=== PATIENT | male | born 1975 | race Caucasian/White ===

== ENCOUNTER → 2019-05-15 | Outpatient (REF) ==
--- NOTE | 2019-05-15 21:39 | REP ---
Clinical: Pain and disability. Technique: AP, lateral, coned-down views of the lumbosacral spine. Findings: Alignment and lordosis maintained. Vertebral bodies intact. Subtle age-related changes are appreciated including minimal endplate sclerosis and very early spurring. Disc spaces appear maintained. Chronic spondylolysis at L5 without anterolisthesis suggested. Impression: Mild age-related degenerative changes. Cannot exclude bilateral L5 spondylolysis Electronically Signed by Cayden Flores MD 05/15/2019 09:30 P
--- NOTE | 2019-05-15 21:50 | REP ---
Pain and disability. Technique: AP lateral, swimmers and open mouth views of the cervical spine. Findings: Alignment and lordosis maintained. Vertebral bodies intact. C1-C2 articulation and odontoid process normal. No significant degenerative changes. Impression: Age-appropriate cervical spine radiographs. Electronically Signed by Cayden Flores MD 05/15/2019 09:41 P
== END ==
LOC: M SMT 13:02
PROVIDERS: ATTEND Internal Medicine
DX: Z00.00 Encounter for general adult medical examination without abnormal findings (principal)

== ENCOUNTER → 2021-04-08 | Outpatient (CLI) | payer OTHER ==
[~2021-04-08] MED LIST: B-12100T2 PO; BUPR150T12 PO; BUSP30TA PO; CLAR10CA3 PO; CYCL-707 PO; FLUO20CA22 PO; OMEP40CA97 PO; PERC5TAB12 PO; PRAZ2CAP PO; ROSU40TA4 PO; VITA500045 PO; [UNRECOGNIZED DRUG - CODE] EX
== END ==
LOC: M LABSMTC 11:57
PROVIDERS: ATTEND Anesthesiology
DX: Z01.818 Encounter for other preprocedural examination (principal); Z11.52 Encounter for screening for COVID-19

== ENCOUNTER 2021-04-13 11:52 | Day surgery (SDC) | payer OTHER ==
[~2021-04-13] VITALS: Ht 185.4 cm; Wt 150.6 kg
[~2021-04-13 11:52] MED LIST changes: +NS 1,000 ML IV ONE
[2021-04-13] MEDS ORDERED: fentaNYL 100 MCG/2 ML INJECTION (J3010) As Ordered ONE (14:26)
[2021-04-13] MEDS ORDERED: LIDOCAINE 2% 100MG/5ML SDV (FOR ANES.) As Ordered ONE (14:26)
[2021-04-13] MEDS ORDERED: propofoL 200 MG/20 ML VIAL As Ordered ONE ×2 (14:26→14:46)
--- NOTE | 2021-04-13 14:41 | ROOR ---
Patient Name: Georgi Arellano Procedure Date: 04/13/2021 2:26 PM Date of : 1975 Age: 45 Room: [facility] Gender: Male Note Status: Finalized Procedure: Upper Endoscopy + Biopsies Indications: Heartburn, Exclusion of Santizo's esophagus Providers: Vasiliy Garcia MD Referring MD: Valentín Sarmiento MD Requesting Provider: Medicines: Monitored Anesthesia Care Complications: No immediate complications. Procedure: Pre-Anesthesia Assessment: - The heart rate, respiratory rate, oxygen saturations, blood pressure, adequacy of pulmonary ventilation, and response to care were monitored throughout the procedure. The Endoscope was introduced through the mouth, and advanced to the second part of duodenum. The upper GI endoscopy was accomplished without difficulty. The patient tolerated the procedure well. Findings: The Z-line was regular and was found 40 cm from the incisors. Multiple biopsies were obtained with cold forceps for evaluation to rule out Santizo's Esophagus randomly at the gastroesophageal junction. No other significant abnormalities were identified in a careful examination of the stomach. The exam of the duodenum was otherwise normal. Impression: - Z-line regular, 40 cm from the incisors. - Multiple biopsies were obtained at the gastroesophageal junction. - The examination was otherwise normal. Recommendation: - Patient has a contact number available for emergencies. The signs and symptoms of potential delayed complications were discussed with the patient. Return to normal activities tomorrow. Written discharge instructions were provided to the patient. - High fiber diet. - Discharge patient to home. - Follow an antireflux regimen. - Continue present medications. - Await pathology results. - Telephone GI clinic for pathology results in 1 week. - Return to referring physician. - The findings and recommendations were discussed with the patient's family. Procedure Code(s): --- Professional --- 02870, Esophagogastroduodenoscopy, flexible, transoral; with biopsy, single or multiple Diagnosis Code(s): --- Professional --- R12, Heartburn CPT copyright 2019 [employer]. All rights reserved. The codes documented in this report are preliminary and upon foil spooler review may be revised to meet current compliance requirements. Vasiliy Garcia MD Vasiliy Garcia MD 04/13/2021 2:41:18 PM Electronically signed by Vasiliy Garcia MD Number of Addenda: 0 Note Initiated On: 04/13/2021 2:26 PM Estimated Blood Loss: Estimated blood loss: none.
--- NOTE | 2021-04-13 15:11 | ROOR ---
Patient Name: Georgi Arellano Procedure Date: 04/13/2021 2:27 PM Date of : 1975 Age: 45 Room: [facility] Gender: Male Note Status: Finalized Procedure: Total Colonoscopy to Cecum + Cold Snare Polypectomy + Hemoclips Indications: Rectal bleeding, Change in bowel habits Providers: Vasiliy Garcia MD Referring MD: Valentín Sarmiento MD Requesting Provider: Medicines: Monitored Anesthesia Care Complications: No immediate complications. Procedure: Pre-Anesthesia Assessment: - The heart rate, respiratory rate, oxygen saturations, blood pressure, adequacy of pulmonary ventilation, and response to care were monitored throughout the procedure. The Colonoscope was introduced through the anus and advanced to the cecum, identified by appendiceal orifice and ileocecal valve. The colonoscopy was performed without difficulty. The patient tolerated the procedure well. The quality of the bowel preparation was excellent. Findings: The perianal and digital rectal examinations were normal. Non-bleeding internal hemorrhoids were found during retroflexion. The hemorrhoids were small and Grade I (internal hemorrhoids that do not prolapse). Scattered small-mouthed diverticula were found in the recto-sigmoid colon, sigmoid colon and descending colon. A medium polyp was found in the transverse colon. The polyp was carpet-like. The polyp was removed with a jumbo cold forceps. Resection and retrieval were complete. A large polyp was found in the ascending colon. The polyp was sessile. The polyp was removed with a cold snare. Resection and retrieval were complete. To prevent bleeding after the polypectomy, two hemostatic clips were successfully placed. There was no bleeding at the end of the procedure. The exam was otherwise without abnormality on direct and retroflexion views. Impression: - Non-bleeding internal hemorrhoids. - Diverticulosis in the recto-sigmoid colon, in the sigmoid colon and in the descending colon. - One medium polyp in the transverse colon, removed with a jumbo cold forceps. Resected and retrieved. - One large polyp in the ascending colon, removed with a cold snare. Resected and retrieved. Clips were placed. - The examination was otherwise normal on direct and retroflexion views. - The exam was otherwise normal to the cecum. Recommendation: - Patient has a contact number available for emergencies. The signs and symptoms of potential delayed complications were discussed with the patient. Return to normal activities tomorrow. Written discharge instructions were provided to the patient. - High fiber diet. - Discharge patient to home. - Continue present medications. - Await pathology results. - Repeat colonoscopy in 3 years for surveillance based on pathology results. - Return to referring physician. - Telephone GI clinic for pathology results in 1 week. - The findings and recommendations were discussed with the patient's family. Procedure Code(s): --- Professional --- 55325, Colonoscopy, flexible; with removal of tumor(s), polyp(s), or other lesion(s) by snare technique 68044, 59, Colonoscopy, flexible; with biopsy, single or multiple Diagnosis Code(s): --- Professional --- K64.0, First degree hemorrhoids K63.5, Polyp of colon K62.5, Hemorrhage of anus and rectum R19.4, Change in bowel habit K57.30, Diverticulosis of large intestine without perforation or abscess without bleeding CPT copyright 2019 [employer]. All rights reserved. The codes documented in this report are preliminary and upon field account manager review may be revised to meet current compliance requirements. Vasiliy Garcia MD Vasiliy Garcia MD 04/13/2021 3:11:35 PM Electronically signed by Vasiliy Garcia MD Number of Addenda: 0 Note Initiated On: 04/13/2021 2:27 PM Estimated Blood Loss: Estimated blood loss: none.
[2021-04-13 15:35] VITALS: BP 158/92
== END 2021-04-13 15:37 | disposition home or self-care (01) ==
LOC: M OPP 11:52
PROVIDERS: ATTEND Internal Medicine Gastroenterology
DX: K57.30 Diverticulosis of large intestine without perforation or abscess without bleeding (principal); K63.5 Polyp of colon; K64.0 First degree hemorrhoids; R19.4 Change in bowel habit; K62.5 Hemorrhage of anus and rectum; K21.9 Gastro-esophageal reflux disease without esophagitis; R12 Heartburn; Z79.891 Long term (current) use of opiate analgesic; Z79.899 Other long term (current) drug therapy; Z88.0 Allergy status to penicillin; Z88.5 Allergy status to narcotic agent; Z91.030 Bee allergy status
CPT/HCPCS: 43239; 45380; 45385; 88305; J3010

== ENCOUNTER → 2021-04-26 | Outpatient (CLI) | payer OTHER ==
[~2021-04-26] MED LIST changes: -NS 1,000 ML IV ONE; +OMEP40CA4 PO; -OMEP40CA97 PO
--- NOTE | 2021-04-26 10:33 | REPVR ---
PROCEDURE INFORMATION: Exam: MR Lumbar Spine Without Contrast Exam date and time: 04/26/2021 9:27 AM Age: 45 years old Clinical indication: Pain; Lumbago with sciatica; Left; Additional info: Lbp with lt sided sciatica, loss of bowels TECHNIQUE: Imaging protocol: Multiplanar magnetic resonance images of the lumbar spine without intravenous contrast. COMPARISON: SPINE LUMBOSACRAL PARTIAL 05/15/2019 1:18 PM FINDINGS: Vertebrae: The lumbar vertebral bodies are normal in height,signal intensity and alignment.No acute fracture or dislocation is seen. Spinal epidural space: There is marked prominence of the epidural fat extending from L5-S3 levels consistent with epidural lipomatosis causing marked secondary spinal canal stenosis. Spinal cord: The conus medullaris is normal. L1-L2: There is no significant degenerative disc herniation.The spinal canal and neural foramina are patent and without significant stenosis. L2-L3: There is no significant degenerative disc herniation.The spinal canal and neural foramina are patent and without significant stenosis. L3-L4: There is no significant degenerative disc herniation.The spinal canal and neural foramina are patent and without significant stenosis. L4-L5: There is no significant degenerative disc herniation.The spinal canal and neural foramina are patent and without significant stenosis. Moderate facet arthropathy. L5-S1: Mild desiccation changes.There is a mild diffuse posterior bulge causing mild effacement of the thecal sac.The facet joints demonstrate moderate degenerative narrowing and sclerosis. Severe epidural lipomatosis causing severe secondary spinal canal stenosis and marked compression and central crowding of the thecal sac and cauda equina nerve roots at this level. Soft tissues: The prevertebral soft tissues appear normal. IMPRESSION: 1. MRI of the lumbar spine reveals multilevel degenerative spondylitic changes and degenerative disc disease as described above. 2. There is marked prominence of the epidural fat extending from L5-S3 levels consistent with epidural lipomatosis causing marked secondary spinal canal stenosis. Electronically signed by: Josse Dc On 04/26/2021 10:33:18 AM
== END ==
LOC: M RAD 08:12
PROVIDERS: ATTEND Pain Medicine Interventional Pain Medicine
DX: M51.26 Other intervertebral disc displacement, lumbar region (principal)

== ENCOUNTER → 2021-06-01 | Outpatient (CLI) | payer OTHER ==
--- NOTE | 2021-06-02 17:32 | REPVR ---
PROCEDURE INFORMATION: Exam: MR Cervical Spine Without Contrast Exam date and time: 06/01/2021 9:00 AM Age: 45 years old Clinical indication: Radiculopathy; Cervical region; Additional info: Radiculopthy cervical region TECHNIQUE: Imaging protocol: Multiplanar magnetic resonance images of the cervical spine without contrast. COMPARISON: CR SPINE CERVICAL AP/LAT 05/15/2019 1:20 PM FINDINGS: Vertebrae: Unremarkable. Spinal cord: Normal signal. No cord compression. C2-C3: No significant disc disease. No significant spinal stenosis. C3-C4: No significant disc disease. No significant spinal stenosis. C4-C5: No significant disc disease. No significant spinal stenosis. C5-C6: No significant disc disease. No significant spinal stenosis. C6-C7: No significant disc disease. No significant spinal stenosis. C7-T1: No significant disc disease. No significant spinal stenosis. Soft tissues: Unremarkable. Vertebral arteries: Expected flow voids in the vertebral arteries. IMPRESSION: Unremarkable spine. Electronically signed by: Nuno Cedillo On 06/02/2021 17:31:32 PM
== END ==
LOC: M RAD 07:31
PROVIDERS: ATTEND Pain Medicine Interventional Pain Medicine
DX: M54.12 Radiculopathy, cervical region (principal)

== ENCOUNTER 2022-01-24 23:24 | Day surgery (SDC) | payer OTHER, MEDICARE ==
[~2022-01-24] VITALS: Ht 182.9 cm; Wt 155.8 kg
[2022-01-24] MEDS ORDERED: ONDANSETRON 4MG/2ML VIAL IV ONE (23:45)
[2022-01-24] MEDS ORDERED: MORPHINE 4 MG/ML 1ML VIAL/SYRINGE (J2270) IV ONE (23:45)
[2022-01-25 00:23] LABS: BASO % 0.3 % (0.0-1.0); EOS # 0.1 10^3/uL (0.0-0.5); EOS % 1.1 % (0.0-3.0); HEMATOCRIT 39.4 % (42.0-52.0); HEMOGLOBIN 13.2 g/dl (13.5-17.5); LYMPH # 2.3 10^3/uL (1.5-5.0); LYMPH % 18.6 % (24.0-44.0); MEAN CORPUSCULAR HEMOGLOBIN 29.3 pg (27.0-33.0); MEAN CORPUSCULAR HGB CONC 33.5 g/dl (32.0-36.5); MEAN CORPUSCULAR VOLUME 87.4 fl (80.0-96.0); MONO # 0.9 10^3/uL (0.0-0.8); MONO % 7.1 % (2.0-8.0); NEUTROPHILS # 8.8 10^3/uL (1.5-8.5); NEUTROPHILS % 72.6 % (36.0-66.0); PLATELET COUNT, AUTOMATED 284 10^3/uL (150-450); RED BLOOD COUNT 4.51 10^6/uL (4.30-6.10); WHITE BLOOD COUNT 12.1 10^3/uL (4.0-10.0)
[2022-01-25 00:32] LABS: INR 0.96; PROTHROMBIN TIME 13.2 SECONDS (12.7-14.5)
[2022-01-25 00:48] LABS: ALBUMIN 3.6 GM/DL (3.2-5.2); BILIRUBIN,DIRECT 0.2 MG/DL (0.0-0.2); BILIRUBIN,TOTAL 0.9 MG/DL (0.2-1.0); CK-MB VALUE MASS < 1.0 NG/ML (<3.6); CPK CREATINE PHOSPHOKINASE 105 U/L (39-308); MB/CK RELATIVE INDEX 0.95 (< OR =4); TOTAL PROTEIN 6.9 GM/DL (6.4-8.2)
[2022-01-25] MEDS ORDERED: ISOVUE-370 76% 100ML VIAL As Ordered ONE (00:50)
[2022-01-25] MEDS ORDERED: MORPHINE 4 MG/ML 1ML VIAL/SYRINGE (J2270) IV ONE (02:15)
[2022-01-25] MEDS ORDERED: LevoFLOXacin IV 750 MG in IV 1 EA IV ONE (02:15)
[2022-01-25] MEDS ORDERED: NS 1,000 ML IV ONE (02:15)
[2022-01-25] MEDS ORDERED: MULTTAB86 PO (02:41)
[2022-01-25] MEDS ORDERED: BUSP15TA47 PO (02:41)
[2022-01-25] MEDS ORDERED: METO1TAB7 PO (02:41)
[2022-01-25] MEDS ORDERED: IMIT6KIT SC (02:41)
[2022-01-25] MEDS ORDERED: META28.32 PO (02:41)
[2022-01-25] MEDS ORDERED: OMEP1CAP73 PO (02:41)
[2022-01-25] MEDS ORDERED: HOME MED LIST COMPLETE! XX SCH (02:45)
[2022-01-25 03:13] LABS: RSV AMPLIFICATION NEGATIVE (NEGATIVE)
[2022-01-25] MEDS ORDERED: LIDOCAINE W/EPINEPHRINE 1% 20ML VIAL As Ordered ONE (04:05)
[2022-01-25] MEDS ORDERED: BUPIVACAINE HCL 0.25% 30ML VIAL As Ordered ONE (04:38)
[2022-01-25] MEDS ORDERED: propofoL 200 MG/20 ML VIAL As Ordered ONE (04:50)
[2022-01-25] MEDS ORDERED: SUGAMMADEX SODIUM 500 MG/5 ML VIAL (BRIDION) As Ordered ONE (04:50)
[2022-01-25] MEDS ORDERED: ACETAMINOPHEN 1000MG 100ML IV BTL (OFIRMEV) (J0131 PER 10MG) As Ordered ONE (04:50)
[2022-01-25] MEDS ORDERED: KETOROLAC 60MG 2ML VIAL As Ordered ONE (04:50)
[2022-01-25] MEDS ORDERED: MIDAZOLAM INJ 2MG/2ML VIAL (J2250 PER 1MG) As Ordered ONE (04:50)
[2022-01-25] MEDS ORDERED: ROCURONIUM BROMIDE 50 MG/5 ML VIAL As Ordered ONE ×2 (04:50→05:07)
[2022-01-25] MEDS ORDERED: LIDOCAINE 2% 100MG/5ML SDV (FOR ANES.) As Ordered ONE (04:50)
[2022-01-25] MEDS ORDERED: dexameTHASONE 4 MG/ML 1ML VIAL (J1100 PER 1MG) As Ordered ONE (04:50)
[2022-01-25] MEDS ORDERED: fentaNYL 250 MCG/5 ML INJECTION As Ordered ONE (04:50)
[2022-01-25] MEDS ORDERED: ONDANSETRON 4MG/2ML VIAL As Ordered ONE (04:50)
[2022-01-25] MEDS ORDERED: ePHEDrine SULFATE 25 MG/5 ML(5MG/ML) SYRINGE As Ordered ONE (05:06)
[2022-01-25] MEDS ORDERED: PHENYLephrine 500MCG 5ML (100MCG/ML) SYRINGE As Ordered ONE (05:06)
[2022-01-25] MEDS ORDERED: PERCOCET 5MG/325MG TAB PO PRN ×2 (05:40)
[2022-01-25] MEDS ORDERED: NS 1,000 ML IV SCH (05:40)
[2022-01-25] MEDS ORDERED: CYCLOBENZAPRINE 10MG TABLET PO PRN (05:40)
[2022-01-25] MEDS ORDERED: MORPHINE 4 MG/ML 1ML VIAL/SYRINGE (J2270) IV PRN ×3 (05:40→05:45)
[2022-01-25] MEDS ORDERED: ONDANSETRON 4MG/2ML VIAL IV PRN (05:45)
[2022-01-25] MEDS ORDERED: fentaNYL 100 MCG/2 ML INJECTION IV PRN (05:45)
[2022-01-25] MEDS ORDERED: LR 1,000 ML IV SCH (05:45)
[2022-01-25] MEDS ORDERED: oxyCODONE 5MG TAB PO PRN (05:45)
[2022-01-25 06:56] VITALS: BP 129/70
[2022-01-25 08:00] VITALS: BP 125/64; O2SAT 96
[2022-01-25 08:55] VITALS: BP 133/74
[2022-01-25] MEDS ORDERED: OMEPRAZOLE 20MG CAP PO SCH (09:00)
[2022-01-25] MEDS ORDERED: LORATADINE 10 MG TAB PO SCH (09:00)
[2022-01-25] MEDS ORDERED: busPIRone 5 MG TAB PO SCH (09:00)
[2022-01-25] MEDS ORDERED: ROSUVASTATIN 10 MG TAB (CRESTOR) PO SCH (09:00)
[2022-01-25] MEDS ORDERED: METOPROLOL SUCC (TopROL XL) 50MG **XL** TAB PO SCH (09:00)
[2022-01-25] MEDS ORDERED: buPROPion **XL** TABLET 150MG (WELLBUTRIN XL) PO SCH (09:00)
[2022-01-25] MEDS ORDERED: FLUoxetine 20 MG CAP PO SCH (09:00)
[2022-01-25] MEDS: KETOROLAC 30 MG/ML 1ML VIAL IV SCH ×2 (11:00→16:43)
[2022-01-25 12:00] VITALS: BP 117/75; O2SAT 97
[2022-01-25] MEDS ORDERED: LEVO500T4 PO (15:42)
[2022-01-25 16:00] VITALS: BP 111/63; O2SAT 92
[2022-01-25] MEDS ORDERED: PRAZOSIN 1 MG CAP PO SCH (21:00)
== END 2022-01-25 17:43 | disposition home or self-care (01) ==
LOC: M ED 23:24 → M SDC 01-25 03:38 → M PCU 01-25 06:50 → M SDC 01-25 17:43
PROVIDERS: ATTEND Surgery
DX: K35.890 Other acute appendicitis without perforation or gangrene (principal); I10 Essential (primary) hypertension; E78.5 Hyperlipidemia, unspecified; K21.9 Gastro-esophageal reflux disease without esophagitis; F32.9 Major depressive disorder, single episode, unspecified; G47.30 Sleep apnea, unspecified; F43.10 Post-traumatic stress disorder, unspecified; R51.9 Headache, unspecified; F17.210 Nicotine dependence, cigarettes, uncomplicated; Z88.0 Allergy status to penicillin; Z88.5 Allergy status to narcotic agent; Z79.899 Other long term (current) drug therapy
CPT/HCPCS: 44970; 80047; 80076; 82150; 82550; 82553; 83690; 84484; 85025; 85610; 87631; 88304; 93005; 93041; 96365; 96366; 96375; 96376; 99285; J0131; J1100; J1885; J1956; J2250; J2270; J2370; J2405; J3010; Q9967

== ENCOUNTER 2022-08-18 16:50 | Emergency (ER) | payer MEDICARE, OTHER ==
[~2022-08-18] VITALS: Ht 180.3 cm; Wt 154.1 kg
[~2022-08-18 16:50] MED LIST changes: +BUSP15TA47 PO; +IMIT6KIT SC; +LEVO1TAB39 PO; +META28.32 PO; +METO1TAB7 PO; +MULTTAB86 PO; +OMEP1CAP73 PO
[2022-08-18 20:03] VITALS: BP 133/74
== END 2022-08-18 20:05 | disposition home or self-care (01) ==
LOC: M ED 16:50
DX: S67.192A Crushing injury of right middle finger, initial encounter (principal); S67.191A Crushing injury of left index finger, initial encounter; W23.1XXA Caught, crushed, jammed, or pinched between stationary objects, initial encounter; Y92.009 Unspecified place in unspecified non-institutional (private) residence as the place of occurrence of the external cause; K21.9 Gastro-esophageal reflux disease without esophagitis; I10 Essential (primary) hypertension; E78.5 Hyperlipidemia, unspecified; F41.9 Anxiety disorder, unspecified; F32.A Depression, unspecified; Z79.899 Other long term (current) drug therapy; Z88.0 Allergy status to penicillin; Z88.8 Allergy status to other drugs, medicaments and biological substances; Z91.030 Bee allergy status

== ENCOUNTER 2024-12-22 14:21 | Emergency (ER) | payer OTHER ==
[~2024-12-22] VITALS: Ht 180.3 cm; Wt 122.7 kg
[~2024-12-22 14:21] MED LIST changes: +FLUO-365 PO; -FLUO20CA22 PO; -ROSU40TA4 PO; +ROSU40TA81 PO
[2024-12-22] MEDS: KETOROLAC 30 MG/ML 1ML VIAL IM ONE (16:52)
[2024-12-22] MEDS: PERCOCET 5MG/325MG TAB PO ONE (16:52)
[2024-12-22 17:33] VITALS: BP 108/57; TEMP 98; O2SAT 97
== END 2024-12-22 18:23 | disposition home or self-care (01) ==
LOC: M ED 14:21
DX: S06.0X0A Concussion without loss of consciousness, initial encounter (principal); Y92.830 Public park as the place of occurrence of the external cause; Y93.9 Activity, unspecified; Y99.9 Unspecified external cause status; W00.0XXA Fall on same level due to ice and snow, initial encounter; E78.5 Hyperlipidemia, unspecified; K21.9 Gastro-esophageal reflux disease without esophagitis; Z87.820 Personal history of traumatic brain injury; Z88.0 Allergy status to penicillin; Z88.8 Allergy status to other drugs, medicaments and biological substances; Z91.030 Bee allergy status; Z79.810 Long term (current) use of selective estrogen receptor modulators (SERMs); Z79.899 Other long term (current) drug therapy
CPT/HCPCS: 70450; 72125; 93971; 96372; 99283; J1885

== ENCOUNTER → 2025-01-07 | Outpatient (CLI) | payer OTHER | LOC: M PLAIMG 13:24 | PROVIDERS: ATTEND Internal Medicine | DX: M54.16 Radiculopathy, lumbar region (principal) ==